=== PATIENT | male | born 1980 | race African-American/Black ===

== ENCOUNTER 2024-07-20 10:29 | Emergency (ER) | payer SELFPAY ==
[~2024-07-20] VITALS: Ht 182.9 cm; Wt 90.7 kg
[2024-07-20 10:46] VITALS: TEMP 37.1; O2SAT 98
[2024-07-20] MEDS ORDERED: KETOROLAC 30MG/ML VIAL IV STA (12:10)
[2024-07-20 14:12] LABS: CHLORIDE 110 mEq/L (98-107); POTASSIUM 4.1 mEq/L (3.5-5.1); SODIUM 140 mEq/L (136-145)
[2024-07-20 14:14] LABS: CALCIUM 9.5 mg/dL (8.7-10.4); CARBON DIOXIDE 25 mEq/L (21-32)
[2024-07-20 14:18] LABS: CREATININE 0.9 mg/dL (0.6-1.3)
[2024-07-20 14:19] LABS: GLUCOSE 97 mg/dL (70-105); UREA NITROGEN BLOOD 10 mg/dL (9-23)
[2024-07-20 14:22] LABS: BASOPHILS % 0.3 % (0.0-2.0); EOSINOPHILS % 0.4 % (0.0-5.0); HEMATOCRIT. 45.9 % (42.0-52.0); HEMOGLOBIN. 15.5 g/dL (14.0-18.0); LYMPHOCYTES % 22.2 % (20.0-50.0); MEAN CORPUSCULAR HEMOGLOBIN 30.1 pg (28.0-32.0); MEAN CORPUSCULAR HGB CONC 33.7 g/dL (31.0-37.0); MEAN CORPUSCULAR VOLUME 89.2 fL (80.0-94.0); MEAN PLATELET VOLUME 9.1 fl (7.4-10.4); MONOCYTES % 6.5 % (2.0-8.0); NEUTROPHILS % 70.6 % (40.0-76.0); PLATELET 240 x1000/uL (130-400); RED BLOOD CELL COUNT 5.14 mill/uL (4.7-6.1); RED CELL DISTRIBUTION WIDTH 12.9 % (11.6-14.6)
[2024-07-20 14:25] LABS: INR 0.9; PROTHROMBIN TIME 10.5 sec (9.6-11.0)
[2024-07-20 14:26] LABS: CLARITY URINE CLEAR (CLEAR); COLOR URINE YELLOW (YELLOW); GLUCOSE URINE NEGATIVE (NEGATIVE); KETONES URINE 1+ (NEGATIVE); LEUKOCYTE ESTERASE URINE NEGATIVE (NEGATIVE); NITRITE URINE NEGATIVE (NEGATIVE); OCCULT BLOOD URINE 2+ (NEGATIVE); PROTEIN URINE NEGATIVE (NEGATIVE); SPECIFIC GRAVITY URINE 1.025 (1.005-1.030); UROBILINOGEN URINE 0.2 E.U./dL (0.2-1.0)
[2024-07-20 14:34] LABS: BACTERIA URINE FEW; RBC URINE 15-25 /hpf (0-2); SQUAMOUS EPITHELIAL CELL URINE NONE SEEN /lpf (RARE/1+); YEAST URINE NONE SEEN
[2024-07-20] MEDS ORDERED: IBUP-2029 MT (15:30)
[2024-07-20] MEDS ORDERED: TAMS-11 MT (15:30)
[2024-07-20] MEDS: KETOROLAC 30MG/ML VIAL IV NR (17:24)
[2024-07-20] MEDS: DIAZEPAM 5 MG/ML 2ML SYR IV NR (17:24)
[2024-07-20] MEDS: SODIUM CHLORIDE 0.9% 1,000 ML IV ONE (17:25)
[2024-07-20 17:27] VITALS: BP 141/77; PULSE 97; RESP 19; O2SAT 99
== END 2024-07-20 17:29 | disposition home or self-care (01) ==
LOC: ER 10:29 → CANBEDREQ 15:37 → ER 17:29
DX: N13.2 Hydronephrosis with renal and ureteral calculous obstruction (principal); I10 Essential (primary) hypertension; Z88.1 Allergy status to other antibiotic agents
CPT/HCPCS: 80048; 81003; 83690; 85025; 85610; 36415; 74176; 96374; 96375; 99285; J3360; J1885; J7030; Z7610